=== PATIENT | female | born 1975 | race Caucasian/White ===

== ENCOUNTER 2020-11-07 13:37 | Emergency (ER) | payer MEDICAID ==
[~2020-11-07] VITALS: Ht 162.6 cm; Wt 54.5 kg
--- NOTE | 2020-11-07 13:46 | NUR ---
BIB EMS FROM HOME AFTER PT STATES SHE WAS DOING CRAFTS AND ALL OF A SUDDEN OUT OF NOWHERE PT BEGAN EXPERIENCING SOB, CHEST TIGHTNESS, DIZZINESS, NAUSEA W/ ONE BOUT OF EMESIS PT BELIEVES SHE SAW RED IN HER VOMIT. LAST 1.5 HOURS AND CAME ON SUDDENLY. DENIES CARDIAC/PULM HX. NOTED TO BE 80/60 BP AND HR 120 ON EMS ARRIVAL GIVEN 500 ML NS BP INCREASED TO 100/66 AND HR DECREASED TO 95-105. BS [employer]. MONITORS APPLIED. VSS. EKG COMPLETED. WARM BLANKET PROVIDED. CALL LIGHT IN REACH.
[2020-11-07 14:31] LABS: BASOPHILS % (AUTO) 1 % (0-1); EOSINOPHILS % (AUTO) 4 % (1-7); LYMPHOCYTES % (AUTO) 15 % (22-44); MEAN CORPUSCULAR HEMOGLOBIN 31.7 pg (27.0-34.8); MEAN CORPUSCULAR HGB CONC 33.5 g/dL (32.4-35.8); MEAN PLATELET VOLUME 7.6 fL (7.4-10.4); MONOCYTES % (AUTO) 5 % (2-9); NEUTROPHILS % (AUTO) 75 % (42-75); PLATELET COUNT 286 x10^3/uL (130-400); RED BLOOD COUNT 3.07 x10^6/uL (3.82-5.3); RED CELL DISTRIBUTION WIDTH 12.4 % (9.6-15.2)
[2020-11-07 14:39] LABS: ALANINE AMINOTRANSFERASE 33 U/L (12-78); ANION GAP 7 mmol/L (5-15); CALCIUM 8.1 mg/dL (8.5-10.1); CHLORIDE 111 mmol/L (98-107); CREATININE 0.51 mg/dL (0.55-1.02)
[2020-11-07 14:44] LABS: ALKALINE PHOSPHATASE 39 U/L (45-117); BILIRUBIN,TOTAL 0.3 mg/dL (0.2-1.0); TOTAL PROTEIN 5.7 g/dL (6.4-8.2); TROPONIN I < 0.015 ng/mL (0.000-0.045)
--- NOTE | 2020-11-07 14:53 | NUR ---
PT RESTING ON GURNEY. NADN. CLARKE.
--- NOTE | 2020-11-07 15:58 | NUR ---
BREAK RN: CORIE FOR RECTAL EXAM WITH DR. FULLER
[2020-11-07] MEDS ORDERED: SODIUM CHLORIDE 0.9% 1,000ML IVBOLUS ONE (16:00)
[2020-11-07 16:15] VITALS: BP 109/63
== END 2020-11-07 16:17 | disposition home or self-care (01) ==
LOC: ED 15:27
DX: R55 Syncope and collapse (principal); R06.02 Shortness of breath; R11.2 Nausea with vomiting, unspecified; F17.200 Nicotine dependence, unspecified, uncomplicated
CPT/HCPCS: 36415; 71045; 80053; 83690; 84484; 84703; 85025; 85379; 93005; 96360; 96361; 99285; J7030